=== PATIENT | male | born 1960 | race Caucasian/White ===

== ENCOUNTER 2017-08-02 08:22 | Emergency (ER) | payer OTHER ==
[2017-08-02 08:30] VITALS: BP 135/88; PULSE 81; TEMP 98.5; BMI 37.0
[2017-08-02] MEDS ORDERED: ONDANSETRON 4 MG TABLET PO ONE (08:36)
[2017-08-02] MEDS ORDERED: ONDANSETRON *ODT* 4 MG TABLET SL ONE (08:39)
--- NOTE | 2017-08-02 08:42 | PDOC ---
History of Present Illness - General Chief Complaint: Nausea/Vomiting Stated Complaint: N/V/D Time Seen by Provider: 08/02/17 08:24 History Source: Patient Exam Limitations: No Limitations - History of Present Illness Travel History: No Initial Comments: 08/02/17 08:36 57 y/o male with 3 episodes of vomiting and diarrhea today, that started this morning. No other sick contacts. Patient's is getting surgery today. Denies anxiety. No fever or chills. No SOB or chest pain. No back pain or abdominal pain. Patient did not take diabetic medications this morning Timing/Duration: reports: intermittent Quality: reports: mild Abdominal Pain Onset Location: denies: generalized abdomen Pain Radiation: reports: no radiation Past History - Past Medical History Allergies/Adverse Reactions: Allergies Allergy/AdvReac Type Severity Reaction Status Date / Time No Known Allergies Allergy Verified 08/02/17 08:23 Home Medications: Ambulatory Orders Atorvastatin Ca [Lipitor] 10 mg PO HS 08/02/17 Atorvastatin Ca [Lipitor] 10 mg PO HS 08/02/17 Levothyroxine [Synthroid -] 75 mcg PO DAILY 08/02/17 Metformin HCl 500 mg PO DAILY 08/02/17 Ondansetron [Zofran Odt -] 4 mg SL TID #10 od.tablet 08/02/17 COPD: No Diabetes: Yes HTN: Yes Hypercholesterolemia: Yes Seizures: Yes - Suicide/Smoking/Psychosocial Hx Smoking History: Never smoked Have you smoked in the past 12 months: No Information on smoking cessation initiated: No Hx Alcohol Use: No Drug/Substance Use Hx: No Substance Use Type: None Review of Systems - Review of Systems Able to Perform ROS?: Yes Is the patient limited Yoruba proficient: No Constitutional: No: Chills, Fever Respiratory: No: Cough, Shortness of Breath Cardiac (ROS): No: Chest Pain, Palpitations ABD/GI: Yes: Diarrhea, Nausea, Vomiting : No: Burning Musculoskeletal: No: Back Pain, Muscle Pain All Other Systems: Reviewed and Negative *Physical Exam - Vital Signs Last Vital Signs Temp Pulse Resp BP Pulse Ox 98.5 F 81 20 135/88 98 08/02/17 08:22 08/02/17 08:22 08/02/17 08:22 08/02/17 08:22 08/02/17 08:22 - Physical Exam General Appearance: Yes: Nourished, Appropriately Dressed HEENT: positive: EOMI, NEHAL, Normal ENT Inspection, Normal Voice, Pharynx Normal Neck: positive: Trachea midline, Normal Thyroid, Supple, Carotid bruit Respiratory/Chest: positive: Lungs Clear, Normal Breath Sounds. negative: Chest Tender, Respiratory Distress, Wheezing Cardiovascular: positive: Regular Rhythm, Regular Rate, S1, S2. negative: Edema , JVD, Murmur Vascular Pulses: Femoral (R): 4+, Femoral (L): 4+, Carotid (R): 4+, Carotid (L) : 4+, Dorsalis-Pedis (R): 4+, Doralis-Pedis (L): 4+ Gastrointestinal/Abdominal: positive: Normal Bowel Sounds, Flat, Soft, Other ( No RLQ or LLQ tenderness, no RUQ tenderness or LUQ tenderness, no pulsatile mass , soft +BS). negative: Tender, Organomegaly, Pulsatile Mass Lymphatic: negative: Adenopathy, Tenderness, Other Musculoskeletal: positive: Normal Inspection. negative: CVA Tenderness Extremity: positive: Normal Capillary Refill, Normal Inspection, Normal Range of Motion. negative: Tender Integumentary: positive: Normal Color, Dry, Warm Neurologic: positive: complaints coordinator II-XII NML intact, Fully Oriented, Alert, Normal Mood/ Affect, Normal Response, Motor Strength 5/5 Progress Note - Progress Note Progress Note: Patient appears to have a viral gastroenteritis, vital stable Will treat with Zofran If worsen will return to ER Patient is in agreement with plan CS 229, no sign of DKA *DC/Admit/Observation/Transfer Diagnosis at time of Disposition: Viral gastroenteritis - Discharge Dispostion Disposition: HOME Condition at time of disposition: Good Admit: No - Patient Instructions Printed Discharge Instructions: DI for Viral Gastroenteritis -- Adult Additional Instructions: Fluids, rest, Tylenol Zofran 4 mg ODT 1 tab every 8 hr as needed If worsens in next 12-24 hrs please return to ER
[2017-08-02] MEDS ORDERED: HEMOQUE TEST 1 EACH EACH ONE ×2 (08:55→09:04)
[2017-08-02] MEDS ORDERED: HEMOQUE CONTROL SOLUTION ONE (08:55)
[2017-08-02] MEDS ORDERED: ONDANSETRON *ODT* 4 MG TABLET ONE (09:02)
== END 2017-08-02 10:53 | disposition home or self-care (01) ==
LOC: FER 08:22
DX: A08.4 Viral intestinal infection, unspecified (principal); B97.89 Other viral agents as the cause of diseases classified elsewhere; I10 Essential (primary) hypertension; E78.00 Pure hypercholesterolemia, unspecified; E11.9 Type 2 diabetes mellitus without complications
CPT/HCPCS: 99282-25